=== PATIENT | male | born 1955 | race Caucasian/White ===

== ENCOUNTER → 2023-10-05 07:42 | Outpatient (REF) | payer MEDICARE, OTHER, SELFPAY | LOC: HWRAD 07:42 | PROVIDERS: ATTENDING PHYSICIAN Physician Assistant | DX: R41.3 Other amnesia (principal); R41.0 Disorientation, unspecified; R41.82 Altered mental status, unspecified; F10.10 Alcohol abuse, uncomplicated | CPT/HCPCS: 70450 ==